=== PATIENT | male | born 2000 | race Two or more races ===

== ENCOUNTER 2018-07-16 21:30 | Emergency (ER) | payer SELFPAY ==
[~2018-07-16] VITALS: Ht 172.7 cm; Wt 70.3 kg
[2018-07-16 21:37] VITALS: BP 120/87
[2018-07-17] MEDS ORDERED: TETRACAINE HCL 0.5% OPTH(EYE) SOLN 4ML EACHEYE ONE
== END 2018-07-17 01:35 | disposition home or self-care (01) ==
LOC: ER 21:33
DX: T26.42XA Burn of left eye and adnexa, part unspecified, initial encounter (principal); T26.41XA Burn of right eye and adnexa, part unspecified, initial encounter; X58.XXXA Exposure to other specified factors, initial encounter; Y93.89 Activity, other specified; Y99.8 Other external cause status; Y92.89 Other specified places as the place of occurrence of the external cause